=== PATIENT | female | born 1995 | race Caucasian/White ===

== ENCOUNTER 2016-07-15 22:42 | Emergency (ER) | payer BC ==
--- NOTE | 2016-07-15 23:14 | Emergency Department Record ---
History of Present Illness - General Chief Complaint: Back Pain/Injury Stated Complaint: BACK PAIN Time Seen by Provider: 07/15/16 23:07 Source: Patient Mode of Arrival: Ambulatory Limitations: No limitations - History of Present Illness Initial Comments: 20 yo female presents with back pain for the last 3 days. She is 8 days post . The pain is mid back. It is sore to move, bend, turn. No fevers or chills. No redness or swelling. No weakness, numbness or tingling. No shortness of breath or chest pain. It would hurt to sit up fully straight. She took an 800mg Motrin prior to arrival and the pain pain is essentially resolved. MD Complaint: Back pain Onset/Timin -: Days(s) Similar Symptoms Previously: No Radiation: Other Severity scale (1-10): 5 Quality: Sharp Consistency: Intermittent Improves With: Medication Worsens With: None Context: Other Associated Symptoms: Denies other symptoms Treatments Prior to Arrival: NSAIDS - Related Data Home Medications Medication Instructions Recorded Confirmed Last Taken Pnv with Ca,No.72/Iron/FA 1 each PO DAILY 11/01/14 07/15/16 02/17/16 [ Plus Tablet] Albuterol Sulfate [Proair Hfa] 1 puff INH ASDIR 02/17/16 07/15/16 02/17/16 Butalb/Acetaminophen/Caffeine 1 each PO ASDIR PRN 02/17/16 07/15/16 Unknown [Fioricet] Previous Rx's Medication Instructions Recorded Budesonide [Pulmicort] 0.5 mg INH RESP.BID #1 ml 02/17/16 Ibuprofen [Motrin 600Mg] 800 mg PO Q8H #20 tablet 07/16/16 Allergies Allergy/AdvReac Type Severity Reaction Status Date / Time amoxicillin trihydrate Allergy Intermediate HIVES Verified 07/15/16 22:50 [From Augmentin] potassium clavulanate Allergy Intermediate HIVES Verified 07/15/16 22:50 [From Augmentin] cephalexin monohydrate AdvReac Intermediate yeast Verified 07/15/16 22:50 [From Keflex] infections' Travel Screening - Travel/Exposure Within Last 30 Days Have you traveled within the last 30 days?: No - Travel/Exposure Within Last Year Have you traveled outside the [place] in the last year?: No - Additonal Travel Details Have you been exposed to anyone with a communicable illness?: No - Travel Symptoms Symptom Screening: None Review of Systems Constitutional: Denies: Chills, Fever, Malaise, Night sweats, Weakness Eyes: Denies: Eye discharge, Eye pain, Photophobia, Vision change ENT: Denies: Congestion, Throat pain Respiratory: Denies: Cough, Dyspnea, Hemoptysis, Stridor, Wheezes Cardiovascular: Denies: Chest pain, Palpitations, Syncope Endocrine: Denies: Fatigue Gastrointestinal: Denies: Abdominal pain, Diarrhea, Nausea, Vomiting Genitourinary: Denies: Dyspareunia, Dysuria, Hematuria, Urgency Musculoskeletal: Reports: Back pain, Myalgia. Denies: Arthralgia, Joint swelling, Neck pain Skin: Denies: Bruising, Change in color, Rash Neurological: Denies: Confusion, Headache Psychiatric: Denies: Anxiety Hematological/Lymphatic: Denies: Blood Clots, Easy bleeding, Easy bruising Past Medical History - SOCIAL HISTORY Smoking Status: Never smoker Alcohol Use: None Drug Use: None - RESPIRATORY Hx Respiratory Disorders: Yes Hx Asthma: Yes - CARDIOVASCULAR Hx Cardio Disorders: No - NEURO Hx Neuro Disorders: No - GI Hx GI Disorders: No - Hx Genitourinary Disorders: Yes Hx UTI: Yes - ENDOCRINE Hx Endocrine Disorders: No - MUSCULOSKELETAL Hx Musculoskeletal Disorders: No - PSYCH Hx Psych Problems: No - HEMATOLOGY/ONCOLOGY Hx Hematology/Oncology Disorders: No Family Medical History Any Significant Family History?: No Physical Exam - General General Appearance: Alert, Oriented x3, Cooperative, No acute distress Limitations: No limitations - Head Head exam: Normal inspection - Eye Eye exam: Normal appearance, PERRL. negative: Conjunctival injection, Scleral icterus - ENT ENT exam: Normal exam Ear exam: Normal external inspection Nasal Exam: Normal inspection Mouth exam: Normal external inspection Teeth exam: Normal inspection Throat exam: Normal inspection - Neck Neck exam: Normal inspection, Full ROM. negative: Tenderness - Respiratory Respiratory exam: Normal lung sounds bilaterally. negative: Chest wall tenderness, Respiratory distress - Cardiovascular Cardiovascular Exam: Regular rate, Normal rhythm, Normal heart sounds - GI/Abdominal GI/Abdominal exam: negative: Tenderness - Rectal Rectal exam: Deferred - exam: Deferred - Extremities Extremities exam: Normal inspection, Full ROM, Normal capillary refill. negative: Tenderness - Back Back exam: Reports: Normal inspection, Full ROM, Other (Normal inspection, no redness or swelling, no tenderness, full ROM). Denies: CVA tenderness (R), CVA tenderness (L), Muscle spasm, Paraspinal tenderness, Rash noted, Tenderness, Vertebral tenderness - Neurological Neurological exam: Alert, Normal gait, Oriented X3. negative: Altered, Motor sensory deficit - Psychiatric Psychiatric exam: Normal affect, Normal mood. negative: Agitated, Anxious - Skin Skin exam: Dry, Intact, Normal color, Warm Course Vital Signs 07/15/16 22:50 Temperature 97.3 F L Pulse Rate 112 H Respiratory 18 Rate Blood Pressure 113/80 Pulse Ox 99 - Reevaluation(s) Reevaluation #1: The XR was reviewed No acute changes The UA was reviewed. Large blood as expected, trace protein. The patient's BP are normal. No acute signs for infection The back pain is resolved with Motrin It seems consistent with musculo-skeletal No red flags to suggest infection. No other associated symptoms pointing to other processes. 07/16/16 00:10 Disposition Disposition: Discharge Clinical Impression: Back Pain Qualifiers: Back pain location: thoracic back pain Chronicity: acute Back pain laterality: unspecified Qualified Code(s): M54.6 - Pain in thoracic spine Disposition: Home, Self-Care Condition: (1) Good Instructions: Low Back Strain (ED) Additional Instructions: Return immediately if return of pain, fever, any new symptoms such as nausea, vomiting, pain with urination or new concerns Call your doctor tomorrow for close follow up Prescriptions: Ibuprofen [Motrin 600Mg] 800 mg PO Q8H #20 tablet Forms: Patient Portal Access Time of Disposition: 00:13
[2016-07-16 00:04] LABS: URINE APPEARANCE CLEAR; URINE BILIRUBIN NEGATIVE (NEGATIVE); URINE BLOOD LARGE (NEGATIVE); URINE COLOR YELLOW; URINE GLUCOSE (UA) NEGATIVE (NEGATIVE); URINE KETONE NEGATIVE (NEGATIVE); URINE LEUKOCYTE ESTERASE NEGATIVE (NEGATIVE); URINE NITRITE NEGATIVE (NEGATIVE); URINE PROTEIN TRACE (NEGATIVE)
[2016-07-16 00:12] LABS: URINE EPITHELIAL CELLS 0 - 2 (FEW); URINE WBC 0 - 2 (0-2/hpf)
[2016-07-16 00:13] LABS: URINE BACTERIA NONE SEEN
--- NOTE | 2016-07-18 14:59 | RADIOLOGY REPORT ---
EXAM: THORACIC SPINE HISTORY: ONSET OF MID TO LOWER THORACIC SPINE PAIN. NO REPORTED INJURY. TECHNIQUE: AP and lateral views of the thoracic spine obtained as well as a lateral swimmer's view. COMPARISON: None. ENCOUNTER: Initial. FINDINGS: There is normal bone mineralization. There is minimal levocurvature of the upper thoracic spine. The vertebral bodies are otherwise normal in alignment and height. No acute fracture nor destructive bone lesion is seen. The intervertebral discs appear maintained. The thoracic pedicles appear intact. IMPRESSION: NO ACUTE OSSEOUS OR LIGAMENTOUS ABNORMALITY IDENTIFIED. MINOR LEVOCURVATURE OF THE UPPER THORACIC SPINE. JOB NUMBER: [id number] MTDD
== END 2016-07-16 00:28 | disposition home or self-care (01) ==
LOC: ER 22:42
DX: O90.89 Other complications of the puerperium, not elsewhere classified (principal); M54.6 Pain in thoracic spine
CPT/HCPCS: 72072; 81001; 99283

== ENCOUNTER 2017-08-26 12:14 | Emergency (ER) | payer OTHER, BC ==
[2017-08-26] MEDS ORDERED: 0.9 % SODIUM CHLORIDE 1,000 ML BAG IV ONE (13:23)
--- NOTE | 2017-08-26 13:28 | Emergency Department Record ---
History of Present Illness - General Chief Complaint: Rapid heartbeat Stated Complaint: HIGH HR/NAUSEA Time Seen by Provider: 08/26/17 13:20 Source: Patient Mode of Arrival: Ambulatory Limitations: No limitations - History of Present Illness Initial Comments: 21 yo female presents with a feeling of palpitations, nausea, lightheaded. She is 18 weeks . No complications. No abdominal pain. No bleeding. She is feeling the baby move. No complications to this point in the . No swelling or edema. No recent illness. MD Complaint: Palpitations Onset/Timin -: Hour(s) Context: Other Associated Symptoms: Denies other symptoms - Related Data Allergies Allergy/AdvReac Type Severity Reaction Status Date / Time amoxicillin trihydrate Allergy Intermediate HIVES Verified 07/15/16 22:50 [From Augmentin] potassium clavulanate Allergy Intermediate HIVES Verified 07/15/16 22:50 [From Augmentin] cephalexin monohydrate AdvReac Intermediate yeast Verified 07/15/16 22:50 [From Keflex] infections' Travel Screening - Travel/Exposure Within Last 30 Days Have you traveled within the last 30 days?: No Review of Systems Constitutional: Reports: Other (hot flashes). Denies: Chills, Fever, Malaise, Weakness Eyes: Denies: Eye discharge, Eye pain, Photophobia ENT: Denies: Congestion, Throat pain Respiratory: Denies: Cough, Dyspnea, Hemoptysis, Stridor, Wheezes Cardiovascular: Reports: Palpitations. Denies: Chest pain, Syncope Endocrine: Denies: Fatigue, Polydipsia, Polyuria Gastrointestinal: Reports: Nausea. Denies: Abdominal pain, Diarrhea, Vomiting Genitourinary: Denies: Dysuria, Urgency Musculoskeletal: Denies: Arthralgia, Back pain, Joint swelling, Myalgia, Neck pain Skin: Denies: Bruising, Change in color, Rash Neurological: Reports: Headache (chronic migraines). Denies: Abnormal gait, Numbness, Weakness Psychiatric: Denies: Anxiety Hematological/Lymphatic: Denies: Blood Clots, Easy bleeding, Easy bruising, Swollen glands Past Medical History - SOCIAL HISTORY Smoking Status: Never smoker Alcohol Use: None Drug Use: None - RESPIRATORY Hx Respiratory Disorders: Yes Hx Asthma: Yes - CARDIOVASCULAR Hx Cardio Disorders: No - NEURO Hx Neuro Disorders: No - GI Hx GI Disorders: No - Hx Genitourinary Disorders: Yes Hx UTI: Yes - ENDOCRINE Hx Endocrine Disorders: No - MUSCULOSKELETAL Hx Musculoskeletal Disorders: No - PSYCH Hx Psych Problems: No - HEMATOLOGY/ONCOLOGY Hx Hematology/Oncology Disorders: No Family Medical History Any Significant Family History?: No Physical Exam - General General Appearance: Alert, Oriented x3, Cooperative, No acute distress Limitations: No limitations - Head Head exam: Normal inspection - Eye Eye exam: Normal appearance, PERRL. negative: Conjunctival injection, Scleral icterus - ENT ENT exam: Normal exam, Mucous membranes moist Ear exam: Normal external inspection Nasal Exam: Normal inspection Mouth exam: Normal external inspection Teeth exam: Normal inspection Throat exam: Normal inspection - Neck Neck exam: Normal inspection, Full ROM. negative: Tenderness - Respiratory Respiratory exam: Normal lung sounds bilaterally. negative: Respiratory distress, Rhonchi, Stridor, Wheezes - Cardiovascular Cardiovascular Exam: Normal rhythm, Normal heart sounds, Tachycardia (mild about 105) Peripheral Pulses: 2+: Radial (R), Radial (L) - GI/Abdominal GI/Abdominal exam: Soft, Normal bowel sounds. negative: Tenderness - Rectal Rectal exam: Deferred - exam: Deferred - Extremities Extremities exam: Normal inspection, Full ROM, Normal capillary refill. negative: Pedal edema, Tenderness - Back Back exam: Reports: Normal inspection, Full ROM. Denies: Muscle spasm, Rash noted, Tenderness - Neurological Neurological exam: Alert, Normal gait, Oriented X3 - Psychiatric Psychiatric exam: Normal affect, Normal mood - Skin Skin exam: Dry, Intact, Normal color, Warm Course Vital Signs 08/26/17 12:46 Temperature 98.2 F Pulse Rate 20 L Respiratory 122 H Rate Blood Pressure 113/77 Pulse Ox 98 - Reevaluation(s) Reevaluation #1: 08/26/17 13:27 The patient is well appearing EKG Rate 109, intervals normal, axis normal, ST normal 08/26/17 14:19 The labs were reviewed No acute changes in the CBC The BMP was reviewed. HCO3 is 21 08/26/17 14:35 The patient is feeling much better HR is 85 Bedside US was used to find single IUP, normal HR and good movement of the baby Medical Decision Making - Lab Data Result diagrams: 08/26/17 13:40 08/26/17 13:40 Disposition Disposition: Discharge Clinical Impression: Heart palpitations Disposition: Home, Self-Care Condition: (1) Good Instructions: Heart Palpitations (ED) Additional Instructions: Rest and stay well hydrated Return if you have any return of symptoms or concerns follow up with your OB Forms: Patient Portal Access Time of Disposition: 13:28 Quality - Quality Measures Quality Measures: N/A - Blood Pressure Screening Does Patient Have Any of the Following: No Blood Pressure Classification: Normal BP Reading Systolic Measurement: 113 Diastolic Measurement: 77 Screening for High Blood Pressure: < Normal BP, F/U Not Required > [G8783]
[2017-08-26 13:49] LABS: BASO % 0.2 % (0-6); EOS % 0.8 % (0-6); GRAN % 70.5 % (47-80); HEMATOCRIT 39.5 % (35.0-47.0); HEMOGLOBIN 13.5 gm/dl (11.6-16.0); LYMPH % 21.2 % (16-45); MEAN CELL VOLUME 82.3 fl (81-97); MEAN CORPUSCULAR HEMOGLOBIN 28.1 pg (27-33); MEAN CORPUSCULAR HGB CONC 34.2 g/dl (32-36); MEAN PLATELET VOLUME 8.5 fl (7.4-10.4); MONO % 7.3 % (0-9); PLATELET COUNT 264 K/uL (130-400); RED CELL DISTRIBUTION WIDTH 14.4 % (11.5-14.5); WHITE BLOOD COUNT W/O DIFF 9.9 K/uL (4.2-12.2)
[2017-08-26 13:57] LABS: BLOOD UREA NITROGEN 15 mg/dL (6-20); CREATININE 0.4 mg/dL (0.5-0.9); EST GLOMERULAR FILTRATION RATE > 60 mL/min
[2017-08-26 13:59] LABS: URINE APPEARANCE CLEAR; URINE BILIRUBIN NEGATIVE (NEGATIVE); URINE BLOOD MODERATE (NEGATIVE); URINE COLOR YELLOW; URINE GLUCOSE (UA) NEGATIVE (NEGATIVE); URINE KETONE NEGATIVE (NEGATIVE); URINE LEUKOCYTE ESTERASE NEGATIVE (NEGATIVE); URINE NITRITE NEGATIVE (NEGATIVE); URINE PROTEIN NEGATIVE (NEGATIVE); URINE UROBILINOGEN 0.2 E.U./dL (0.20 - 1.00)
[2017-08-26 14:00] LABS: GLUCOSE,RANDOM 86 mg/dL (74-109)
[2017-08-26 14:13] LABS: URINE BACTERIA FEW; URINE WBC 0 - 2 (0-2/hpf)
== END 2017-08-26 14:58 | disposition home or self-care (01) ==
LOC: ER 12:14
DX: O26.892 Other specified pregnancy related conditions, second trimester (principal); R00.2 Palpitations; R11.0 Nausea; Z3A.18 18 weeks gestation of pregnancy
CPT/HCPCS: 80048; 81001; 84443; 85025; 93005; 93010; 99284; J7030

== ENCOUNTER 2018-04-18 19:02 | Emergency (ER) | payer OTHER, BC ==
--- NOTE | 2018-04-18 19:22 | Emergency Department Record ---
History of Present Illness - General Chief complaint: ENT Stated complaint: [place],COLD,SORE THROAT, CHILLS Time Seen by Provider: 04/18/18 19:05 Source: Patient Mode of Arrival: Ambulatory Limitations: No limitations - History of Present Illness Initial comments: 22 yo female presents to ED for evaluation of sore throat, low-grade fever, and body aches that began yesterday. Patient reports numerous ill contacts at home with similar symptoms. Patient denies health problems at her baseline. MD complaint: Sore throat, Other (myalgias) Onset/Timin -: Days(s) Location: Throat Severity: Moderate Severity scale (1-10): 8 Quality: Aching Consistency: Constant Improves with: None Worsens with: None Associated Symptoms: Cough, Fever, Sore throat - Related Data Home Medications Medication Instructions Recorded Confirmed Last Taken Tramadol HCl 50 mg PO DAILY PRN 04/18/18 04/18/18 Unknown Allergies Allergy/AdvReac Type Severity Reaction Status Date / Time amoxicillin trihydrate Allergy Intermediate HIVES Verified 07/15/16 22:50 [From Augmentin] potassium clavulanate Allergy Intermediate HIVES Verified 07/15/16 22:50 [From Augmentin] cephalexin monohydrate AdvReac Intermediate yeast Verified 07/15/16 22:50 [From Keflex] infections' hydrocodone AdvReac Insomnia Verified 04/18/18 19:10 Travel Screening - Travel/Exposure Within Last 30 Days Have you traveled within the last 30 days?: No Review of Systems Constitutional: Reports: Fever. Denies: Chills, Malaise, Night sweats Eyes: Denies: Eye discharge, Eye pain ENT: Reports: Congestion, Throat pain. Denies: Ear pain, Epistaxis Respiratory: Reports: Cough. Denies: Dyspnea Cardiovascular: Denies: Chest pain, Dyspnea on exertion Endocrine: Denies: Fatigue, Heat or cold intolerance Gastrointestinal: Denies: Abdominal pain, Nausea, Vomiting Genitourinary: Denies: Incontinence, Retention Musculoskeletal: Reports: Myalgia. Denies: Arthralgia, Back pain Skin: Denies: Bruising, Change in color Neurological: Denies: Abnormal gait, Confusion, Seizure Psychiatric: Denies: Anxiety Hematological/Lymphatic: Denies: Anemia, Blood Clots Past Medical History - SOCIAL HISTORY Smoking Status: Never smoker Alcohol Use: None Drug Use: None - RESPIRATORY Hx Respiratory Disorders: Yes Hx Asthma: Yes - CARDIOVASCULAR Hx Cardio Disorders: No - NEURO Hx Neuro Disorders: No - GI Hx GI Disorders: No - Hx Genitourinary Disorders: Yes Hx UTI: Yes - ENDOCRINE Hx Endocrine Disorders: No - MUSCULOSKELETAL Hx Musculoskeletal Disorders: No - PSYCH Hx Psych Problems: No - HEMATOLOGY/ONCOLOGY Hx Hematology/Oncology Disorders: No Family Medical History Any Significant Family History?: No Physical Exam - General General Appearance: Alert, Oriented x3, Cooperative, Mild distress Limitations: No limitations - Head Head exam: Atraumatic, Normocephalic, Normal inspection Head exam detail: negative: Abrasion, Contusion, Lange's sign, General tenderness, Hematoma, Laceration - Eye Eye exam: Normal appearance. negative: Conjunctival injection, Periorbital swelling, Periorbital tenderness, Scleral icterus - ENT Ear exam: negative: Auricular hematoma, Auricular trauma Nasal Exam: negative: Active bleeding, Discharge, Dried blood, Foreign body Mouth exam: negative: Drooling, Laceration, Muffled voice, Tongue elevation Throat exam: Tonsillar erythema (Mild). negative: Tonsillomegaly, Tonsillar exudate, R peritonsillar mass, L peritonsillar mass - Neck Neck exam: Normal inspection. negative: Meningismus, Tenderness - Respiratory Respiratory exam: Normal lung sounds bilaterally. negative: Rales, Respiratory distress, Rhonchi, Stridor - Cardiovascular Cardiovascular Exam: Regular rate, Normal rhythm, Normal heart sounds - GI/Abdominal GI/Abdominal exam: Soft. negative: Rebound, Rigid, Tenderness - Rectal Rectal exam: Deferred - exam: Deferred - Extremities Extremities exam: Normal inspection. negative: Calf tenderness, Pedal edema, Tenderness - Back Back exam: Denies: CVA tenderness (R), CVA tenderness (L) - Neurological Neurological exam: Alert, Normal gait, Oriented X3 - Psychiatric Psychiatric exam: Normal affect, Normal mood - Skin Skin exam: Normal color. negative: Abrasion Type of lesion: negative: abrasion Course Vital Signs 04/18/18 19:13 Temperature 98.3 F Pulse Rate 101 H Respiratory 20 Rate Blood Pressure 114/76 Pulse Ox 100 - Reevaluation(s) Reevaluation #1: 04/18/18 19:35 Influenza: Negative Strep: Negative Symptoms appear c/w viral syndrome, patient appears stable for discharge with symptomatic care as discussed. Disposition Disposition: Discharge Clinical Impression: Viral syndrome Disposition: Home, Self-Care Condition: (2) Stable Instructions: Viral Syndrome (ED) Additional Instructions: Return to ED if your symptoms worsen or if you have any concerns. Motrin/Tylenol as directed. Follow-up with your family doctor in 3-5 days as directed. Forms: Patient Portal Access, Return to Work/School Time of Disposition: 19:36 Quality - Quality Measures Quality Measures: N/A - Blood Pressure Screening Does Patient Have Any of the Following: No Blood Pressure Classification: Normal BP Reading Systolic Measurement: 114 Diastolic Measurement: 76 Screening for High Blood Pressure: < Normal BP, F/U Not Required > [G8783]
[2018-04-18 19:26] LABS: STREP A SCREEN NEGATIVE (NEGATIVE)
[2018-04-18 19:27] LABS: INFLUENZA A NEGATIVE (NEGATIVE); INFLUENZA B NEGATIVE (NEGATIVE)
== END 2018-04-18 19:45 | disposition home or self-care (01) ==
LOC: ER 19:02
DX: B34.9 Viral infection, unspecified (principal)
CPT/HCPCS: 87400; 87880; 99282

== ENCOUNTER 2018-04-20 09:16 | Emergency (ER) | payer OTHER, BC ==
[2018-04-20] MEDS ORDERED: CLINDAMYCIN 150 MG CAP PO ONE (09:21)
[2018-04-20] MEDS ORDERED: DEXAMETHASONE SOD PHOSPHATE 10MG/ML VIAL PO ONE (09:21)
--- NOTE | 2018-04-20 09:28 | Emergency Department Record ---
History of Present Illness - General Chief complaint: ENT Stated complaint: THROAT PAIN, CONJESTION Time Seen by Provider: 04/20/18 09:21 Source: Patient Mode of Arrival: Ambulatory Limitations: No limitations - History of Present Illness Initial comments: 22 yo female presents with worsening sore throat. She had a recent negative rapid strep but now she has noted increased swollen glands, pain, and white exudate on the tonsils. No NVD. No rash. No posterior neck pain or adenopathy. She is bottle feeding her baby. No cough. No edema. She is allergic to penicillin and cephalosporins. MD complaint: Sore throat -: Days(s) (3) Location: Throat Severity: Moderate Quality: Aching Consistency: Constant Improves with: None Worsens with: Swallowing Context- Ear: Recent illness Associated Symptoms: Sore throat - Related Data Previous Rx's Medication Instructions Recorded Clindamycin HCl 300 mg PO Q8H #30 capsule 04/20/18 Allergies Allergy/AdvReac Type Severity Reaction Status Date / Time amoxicillin trihydrate Allergy Intermediate HIVES Verified 07/15/16 22:50 [From Augmentin] potassium clavulanate Allergy Intermediate HIVES Verified 07/15/16 22:50 [From Augmentin] cephalexin monohydrate AdvReac Intermediate yeast Verified 07/15/16 22:50 [From Keflex] infections' hydrocodone AdvReac Insomnia Verified 04/18/18 19:10 Review of Systems Constitutional: Reports: Fever, Malaise, Weakness. Denies: Chills Eyes: Denies: Eye discharge ENT: Reports: Throat pain. Denies: Congestion, Ear pain Respiratory: Denies: Cough, Dyspnea, Hemoptysis, Stridor, Wheezes Cardiovascular: Denies: Chest pain, Syncope Endocrine: Denies: Fatigue Gastrointestinal: Denies: Diarrhea, Nausea, Vomiting Genitourinary: Denies: Dysuria Musculoskeletal: Denies: Arthralgia, Back pain, Myalgia Skin: Denies: Bruising, Change in color, Rash Neurological: Denies: Headache Psychiatric: Denies: Anxiety Hematological/Lymphatic: Denies: Easy bleeding, Easy bruising Past Medical History - SOCIAL HISTORY Smoking Status: Never smoker Drug Use: None - RESPIRATORY Hx Respiratory Disorders: Yes Hx Asthma: Yes - CARDIOVASCULAR Hx Cardio Disorders: No - NEURO Hx Neuro Disorders: No - GI Hx GI Disorders: No - Hx Genitourinary Disorders: Yes Hx UTI: Yes - ENDOCRINE Hx Endocrine Disorders: No - MUSCULOSKELETAL Hx Musculoskeletal Disorders: No - PSYCH Hx Psych Problems: No - HEMATOLOGY/ONCOLOGY Hx Hematology/Oncology Disorders: No Physical Exam - General General Appearance: Alert, Oriented x3, Cooperative, No acute distress Limitations: No limitations - Head Head exam: Atraumatic, Normal inspection - Eye Eye exam: Normal appearance, PERRL. negative: Conjunctival injection, Scleral icterus - ENT ENT exam: Mucous membranes moist, TM's normal bilaterally. negative: Mucous membranes dry, Normal orophraynx Ear exam: Normal external inspection Nasal Exam: Normal inspection. negative: Discharge Mouth exam: Normal external inspection. negative: Drooling, Muffled voice Teeth exam: Normal inspection Throat exam: Tonsillar erythema, Tonsillomegaly, Tonsillar exudate. negative: Normal inspection, R peritonsillar mass, L peritonsillar mass - Neck Neck exam: Normal inspection, Lymphadenopathy (anterior mild mobile, soft; no posterior) - Respiratory Respiratory exam: Normal lung sounds bilaterally. negative: Accessory muscle use, Decreased breath sounds, Respiratory distress, Rhonchi, Stridor, Wheezes - Cardiovascular Cardiovascular Exam: Regular rate, Normal rhythm, Normal heart sounds - Rectal Rectal exam: Deferred - exam: Deferred - Extremities Extremities exam: Normal inspection - Neurological Neurological exam: Alert, Oriented X3 - Psychiatric Psychiatric exam: Normal affect, Normal mood - Skin Skin exam: Dry, Intact, Normal color, Warm Course - Reevaluation(s) Reevaluation #1: The examination now is clinically consistent with tonsillitis with exudates 04/20/18 09:26 Disposition Disposition: Discharge Clinical Impression: Tonsillitis Disposition: Home, Self-Care Return To Work/School Note Provided: Yes Condition: (1) Good Instructions: Tonsillitis (ED) Additional Instructions: Take the prescriptions provided today as directed. Call your family doctor. Call to schedule the next available appointment for a recheck. Return to ED if your symptoms worsen or if you have any new concerns. Review the final Emergency Record and test results with your doctor on follow up Off work today Prescriptions: Clindamycin HCl 300 mg PO Q8H #30 capsule Forms: Patient Portal Access Time of Disposition: 09:26 Quality - Quality Measures Quality Measures: N/A - Blood Pressure Screening Does Patient Have Any of the Following: No Blood Pressure Classification: Normal BP Reading Systolic Measurement: 110 Diastolic Measurement: 76 Screening for High Blood Pressure: < Normal BP, F/U Not Required > [G1187]
== END 2018-04-20 09:45 | disposition home or self-care (01) ==
LOC: ER 09:16
DX: J03.90 Acute tonsillitis, unspecified (principal)
CPT/HCPCS: 99282